=== PATIENT | female | born 1960 | race Hispanic/Latino ===

== ENCOUNTER 2022-05-22 07:05 | Day surgery (SDC) | payer MEDICARE ==
[2022-05-19 13:03] VITALS: BMI 28.0
[2022-05-22 07:09] VITALS: BP 151/65; TEMP 98
[2022-05-22] MEDS ORDERED: FLU VACC QS2022-23(6MOS UP)/PF 60 MCG/0.5 ML SYRINGE IM ONE (07:15)
[2022-05-22] MEDS ORDERED: Lidocaine 2% PF 5 ML VIAL ONE (07:56)
[2022-05-22] MEDS ORDERED: Sodium Bicarbonate 2.5 MEQ/5 ML VIAL ONE (07:56)
== END 2022-05-22 09:51 | disposition home or self-care (01) ==
LOC: SPEC 07:05
PROVIDERS: ATTEND Specialist
PROC: B51W1ZZ Fluoroscopy of Dialysis Shunt/Fistula using Low Osmolar Contrast (ICD-10-PCS; principal; 2022-05-22)
DX: T82.590A Other mechanical complication of surgically created arteriovenous fistula, initial encounter (principal); I12.0 Hypertensive chronic kidney disease with stage 5 chronic kidney disease or end stage renal disease; N18.6 End stage renal disease; Z79.899 Other long term (current) drug therapy; Z88.6 Allergy status to analgesic agent; Z99.2 Dependence on renal dialysis; Y81.3 Surgical instruments, materials and general- and plastic-surgery devices (including sutures) associated with adverse incidents
CPT/HCPCS: 36901; J2001

== ENCOUNTER 2023-03-02 18:42 | Inpatient (IN) | payer MEDICARE ==
[2023-03-02 19:43] LABS: #Monocytes 0.1 thou/uL (0.11-0.59); #Neutrophils 4.6 thou/uL (1.40-6.50); %Basophils 0.2 % (0.0-1.0); %Lymphocytes 8.1 % (21.0-51.0); %Monocytes 2.7 % (0.0-10.0); %Neutrophils 88.4 % (42.0-75.0); Hematocrit 32.1 % (36.0-47.0); Hemoglobin 11.1 g/dL (12.0-16.0); Mean Corpuscular HGB CONC 34.6 g/dL (32.0-36.0); Mean Corpuscular Hemoglobin 34.8 pg (27.0-31.0); Mean Corpuscular Volume 100.6 fl (78.0-98.0); Mean Platelet Volume 11.3 fL (7.4-10.4); Platelet Count 135 10x3/uL (130-400); RBC Distribution Width 12.7 % (11.5-14.5); Red Blood Cell (RBC) Count 3.19 mill/uL (4.20-5.40); White Blood Cell (WBC) Count 5.2 10x3/uL (4.8-10.8)
[2023-03-02 19:55] LABS: INR-International Normal Ratio 1.1; Prothrombin Time 14.3 sec (12.0-14.7)
[2023-03-02 19:56] LABS: PTT 31.9 sec (22.9-36.1)
[2023-03-02 20:03] LABS: ALT (SGPT) 7 U/L (8-55); AST (SGOT) 14 U/L (5-34); Albumin 4.2 g/dL (3.4-4.8); Alkaline Phosphatase 43 U/L (40-110); Anion Gap 15 mmol/L (10-20); BUN (Urea Nitrogen) 22 mg/dL (9.8-20.1); Bilirubin, Total 0.4 mg/dL (0.2-1.2); Calc. Creatinine Clearance 0 mL/min (70-130); Calcium 9.6 mg/dL (7.8-10.44); Carbon Dioxide 29 mmol/L (23-31); Chloride 100 mmol/L (98-107); Estimated GFR 9; Globulin 2.8 g/dL (2.4-3.5); Glucose 128 mg/dL (80-115); Potassium 3.5 mmol/L (3.5-5.1); Sodium 140 mmol/L (136-145)
[2023-03-02] MEDS ORDERED: niCARdipine 25 MG in Sodium Chloride 0.9% 250 ML 250 ML IVPB PRN (20:16)
[2023-03-02] MEDS ORDERED: Senokot S 8.6-50 MG TAB PO PRN (20:23)
[2023-03-02] MEDS ORDERED: Calcium Carbonate 500 MG ChewTAB PO PRN (20:23)
[2023-03-02] MEDS ORDERED: Ondansetron ODT 4 MG TAB PO PRN (20:23)
[2023-03-02] MEDS ORDERED: Acetaminophen 325 MG TAB PO PRN (20:23)
[2023-03-02] MEDS ORDERED: Labetalol HCl 100 MG/20 ML VIAL ONE (20:38)
[2023-03-02] MEDS: Pantoprazole 40 MG VIAL IVP SCH (22:34)
[2023-03-02] MEDS ORDERED: Glucagon 1 MG/ML KIT IM PRN (22:35)
[2023-03-02] MEDS ORDERED: Dextrose 5% in Water 1,000 ML IV PRN (22:35)
[2023-03-02] MEDS ORDERED: Dextrose 50% Abboject 50 ML SYRINGE SLOW IVP PRN (22:35)
[2023-03-02] MEDS ORDERED: Dexamethasone 4 mg/ml Vial SLOW IVP SCH (23:00)
[2023-03-02 23:38] LABS: Troponin I 0.065 ng/mL (< 0.028)
[2023-03-02] MEDS: Dexamethasone 4 mg/ml Vial SLOW IVP SCH (23:46)
[2023-03-03] MEDS: hydrALAZINE 20 MG/ML VIAL SLOW IVP PRN ×3 (03:02→09:19)
[2023-03-03] MEDS: Dexamethasone 4 mg/ml Vial SLOW IVP SCH ×3 (06:37→17:31)
[2023-03-03 07:01] LABS: #Monocytes 0.1 thou/uL (0.11-0.59); #Neutrophils 4.7 thou/uL (1.40-6.50); %Monocytes 2.6 % (0.0-10.0); %Neutrophils 85.7 % (42.0-75.0); Hematocrit 33.1 % (36.0-47.0); Hemoglobin 11.4 g/dL (12.0-16.0); Mean Corpuscular HGB CONC 34.4 g/dL (32.0-36.0); Mean Corpuscular Hemoglobin 34.4 pg (27.0-31.0); Mean Platelet Volume 11.4 fL (7.4-10.4); Platelet Count 137 10x3/uL (130-400); RBC Distribution Width 12.6 % (11.5-14.5); Red Blood Cell (RBC) Count 3.31 mill/uL (4.20-5.40); White Blood Cell (WBC) Count 5.5 10x3/uL (4.8-10.8)
[2023-03-03 07:17] LABS: Hemoglobin A1c 5.4 % (4.0-6.0)
[2023-03-03 07:27] LABS: Anion Gap 16 mmol/L (10-20); BUN (Urea Nitrogen) 32 mg/dL (9.8-20.1); Calc. Creatinine Clearance 9 mL/min (70-130); Calcium 9.5 mg/dL (7.8-10.44); Carbon Dioxide 26 mmol/L (23-31); Chloride 98 mmol/L (98-107); Estimated GFR 8; Glucose 210 mg/dL (80-115); Potassium 3.3 mmol/L (3.5-5.1); Sodium 137 mmol/L (136-145)
[2023-03-03] MEDS: Carvedilol 25 MG TAB PO SCH ×2 (09:23→16:26)
[2023-03-03] MEDS: Calcium Acetate 667 MG CAP PO SCH ×3 (09:23→17:31)
[2023-03-03] MEDS: Amlodipine 10 MG TAB PO SCH (09:23)
[2023-03-03] MEDS: Pantoprazole 40 MG VIAL IVP SCH ×2 (09:24→21:20)
[2023-03-03] MEDS: Cholecalciferol 1,000 UNITS (25 MCG) TAB PO SCH (12:11)
[2023-03-03] MEDS: HumaLOG 300 UNITS/3 ML VIAL SC PRN (16:27)
[2023-03-04] MEDS: Dexamethasone 4 mg/ml Vial SLOW IVP SCH ×4 (00:26→21:04)
[2023-03-04 06:09] LABS: #Monocytes 0.2 thou/uL (0.11-0.59); #Neutrophils 7.9 thou/uL (1.40-6.50); %Basophils 0.1 % (0.0-1.0); %Monocytes 2.3 % (0.0-10.0); %Neutrophils 89.9 % (42.0-75.0); Hematocrit 32.2 % (36.0-47.0); Hemoglobin 11.3 g/dL (12.0-16.0); Mean Corpuscular HGB CONC 35.1 g/dL (32.0-36.0); Mean Corpuscular Hemoglobin 34.7 pg (27.0-31.0); Mean Corpuscular Volume 98.8 fl (78.0-98.0); Mean Platelet Volume 11.8 fL (7.4-10.4); Platelet Count 139 10x3/uL (130-400); RBC Distribution Width 12.7 % (11.5-14.5); Red Blood Cell (RBC) Count 3.26 mill/uL (4.20-5.40); White Blood Cell (WBC) Count 8.8 10x3/uL (4.8-10.8)
[2023-03-04] MEDS: HumaLOG 300 UNITS/3 ML VIAL SC PRN (06:29)
[2023-03-04 06:30] LABS: Anion Gap 19 mmol/L (10-20); BUN (Urea Nitrogen) 65 mg/dL (9.8-20.1); Calc. Creatinine Clearance 7 mL/min (70-130); Calcium 9.4 mg/dL (7.8-10.44); Carbon Dioxide 25 mmol/L (23-31); Chloride 94 mmol/L (98-107); Estimated GFR 6; Glucose 264 mg/dL (80-115); Potassium 3.7 mmol/L (3.5-5.1); Sodium 134 mmol/L (136-145)
[2023-03-04] MEDS: Calcium Acetate 667 MG CAP PO SCH ×3 (09:47→21:03)
[2023-03-04] MEDS: Cholecalciferol 1,000 UNITS (25 MCG) TAB PO SCH (09:47)
[2023-03-04] MEDS: Amlodipine 10 MG TAB PO SCH (09:47)
[2023-03-04] MEDS: Insulin Glargine 30 UNITS/0.3 ML VIAL SC SCH ×2 (09:48→21:05)
[2023-03-04] MEDS: Carvedilol 25 MG TAB PO SCH ×2 (09:48→23:21)
[2023-03-04] MEDS: Pantoprazole 40 MG VIAL IVP SCH ×2 (09:48→21:04)
[2023-03-04 13:38] LABS: HBSAB Concentration Less than 8.00 mIU/mL; HBSAg Index 0.24 S/CO (0-0.99); Hep B Core Total Ab Non-Reactive (NonReactive); Hep B Core Total Index 0.12 S/CO (0-0.79); Hep B Surf AB Non-Reactive (NonReactive); Hep B Surf Ag Non-Reactive S/CO (NonReactive); Hep C IgG Ab Non-Reactive S/CO (NonReactive); Hep C Index 0.08 S/CO (0-0.79)
[2023-03-05] MEDS: Dexamethasone 4 mg/ml Vial SLOW IVP SCH ×5 (02:31→23:48)
[2023-03-05 04:35] LABS: #Monocytes 0.2 thou/uL (0.11-0.59); #Neutrophils 7.8 thou/uL (1.40-6.50); %Basophils 0.1 % (0.0-1.0); %Lymphocytes 6.9 % (21.0-51.0); %Monocytes 2.3 % (0.0-10.0); %Neutrophils 90.1 % (42.0-75.0); Hematocrit 32.5 % (36.0-47.0); Hemoglobin 11.2 g/dL (12.0-16.0); Mean Corpuscular HGB CONC 34.5 g/dL (32.0-36.0); Mean Corpuscular Volume 98.8 fl (78.0-98.0); Mean Platelet Volume 11.6 fL (7.4-10.4); Platelet Count 156 10x3/uL (130-400); RBC Distribution Width 12.3 % (11.5-14.5); Red Blood Cell (RBC) Count 3.29 mill/uL (4.20-5.40); White Blood Cell (WBC) Count 8.7 10x3/uL (4.8-10.8)
[2023-03-05 04:52] LABS: Anion Gap 15 mmol/L (10-20); BUN (Urea Nitrogen) 31 mg/dL (9.8-20.1); Calc. Creatinine Clearance 11 mL/min (70-130); Calcium 9.3 mg/dL (7.8-10.44); Carbon Dioxide 29 mmol/L (23-31); Chloride 94 mmol/L (98-107); Estimated GFR 11; Glucose 242 mg/dL (80-115); Potassium 3.8 mmol/L (3.5-5.1); Sodium 134 mmol/L (136-145)
[2023-03-05] MEDS: HumaLOG 300 UNITS/3 ML VIAL SC PRN (06:08)
[2023-03-05] MEDS: Pantoprazole 40 MG VIAL IVP SCH ×2 (08:56→20:37)
[2023-03-05] MEDS: Insulin Glargine 30 UNITS/0.3 ML VIAL SC SCH ×2 (08:57→20:37)
[2023-03-05] MEDS: Carvedilol 25 MG TAB PO SCH ×2 (08:59→15:52)
[2023-03-05] MEDS: Calcium Acetate 667 MG CAP PO SCH ×3 (09:00→18:02)
[2023-03-05] MEDS: Cholecalciferol 1,000 UNITS (25 MCG) TAB PO SCH (09:00)
[2023-03-05] MEDS: Amlodipine 10 MG TAB PO SCH (09:00)
[2023-03-05 15:19] VITALS: BMI 23.2
[2023-03-06 05:08] LABS: #Monocytes 0.2 thou/uL (0.11-0.59); #Neutrophils 6.6 thou/uL (1.40-6.50); %Lymphocytes 8.8 % (21.0-51.0); %Monocytes 2.9 % (0.0-10.0); %Neutrophils 87.2 % (42.0-75.0); Hematocrit 32.4 % (36.0-47.0); Hemoglobin 11.4 g/dL (12.0-16.0); Mean Corpuscular HGB CONC 35.2 g/dL (32.0-36.0); Mean Corpuscular Hemoglobin 34.9 pg (27.0-31.0); Mean Corpuscular Volume 99.1 fl (78.0-98.0); Mean Platelet Volume 11.9 fL (7.4-10.4); Platelet Count 142 10x3/uL (130-400); RBC Distribution Width 12.3 % (11.5-14.5); Red Blood Cell (RBC) Count 3.27 mill/uL (4.20-5.40); White Blood Cell (WBC) Count 7.5 10x3/uL (4.8-10.8)
[2023-03-06] MEDS: Dexamethasone 4 mg/ml Vial SLOW IVP SCH (05:19)
[2023-03-06 05:23] LABS: Anion Gap 13 mmol/L (10-20); BUN (Urea Nitrogen) 61 mg/dL (9.8-20.1); Calc. Creatinine Clearance 8 mL/min (70-130); Calcium 9.8 mg/dL (7.8-10.44); Carbon Dioxide 27 mmol/L (23-31); Chloride 95 mmol/L (98-107); Estimated GFR 7; Glucose 211 mg/dL (80-115); Potassium 3.5 mmol/L (3.5-5.1); Sodium 131 mmol/L (136-145)
[2023-03-06 07:45] VITALS: BP 185/71; TEMP 97.4
[2023-03-06] MEDS: Calcium Acetate 667 MG CAP PO SCH (08:31)
[2023-03-06] MEDS: Carvedilol 25 MG TAB PO SCH (08:31)
[2023-03-06] MEDS: Amlodipine 10 MG TAB PO SCH (08:31)
[2023-03-06] MEDS: Cholecalciferol 1,000 UNITS (25 MCG) TAB PO SCH (08:31)
[2023-03-06] MEDS: Pantoprazole 40 MG VIAL IVP SCH (08:31)
[2023-03-06] MEDS ORDERED: hydrALAZINE 25 MG TAB PO SCH (09:00)
[2023-03-06] MEDS ORDERED: Insulin Glargine 30 UNITS/0.3 ML VIAL SC SCH (09:00)
== END 2023-03-06 08:55 | disposition short-term general hospital (02) | DRG 70 ==
LOC: ERS 18:42 → CCU 20:25 → 2SE 03-03 17:23
PROVIDERS: ADMIT Student in an Organized Health Care Education/Training Program; ATTEND Internal Medicine
PROC: 4A10X4Z Monitoring of Central Nervous Electrical Activity, External Approach (ICD-10-PCS; 2023-03-03)
PROC: 5A1D70Z Performance of Urinary Filtration, Intermittent, Less than 6 Hours Per Day (ICD-10-PCS; principal; 2023-03-04)
DX: G93.89 Other specified disorders of brain (principal); G93.5 Compression of brain; N18.6 End stage renal disease; G93.6 Cerebral edema; I13.2 Hypertensive heart and chronic kidney disease with heart failure and with stage 5 chronic kidney disease, or end stage renal disease; G93.49 Other encephalopathy; E11.22 Type 2 diabetes mellitus with diabetic chronic kidney disease; I50.9 Heart failure, unspecified; D63.1 Anemia in chronic kidney disease; H54.7 Unspecified visual loss; Z88.8 Allergy status to other drugs, medicaments and biological substances; Z79.899 Other long term (current) drug therapy; Z98.890 Other specified postprocedural states; Z99.2 Dependence on renal dialysis
CPT/HCPCS: 36415; 36416; 70553; 80048; 83036; 85025; 85610; 85730; 86704; 90935; 93005; 93306; 95712; 95819; 95957; 96374; C9113; G0257; J0360; J1100; J1815